=== PATIENT | female | born 1965 | race Caucasian/White ===

== ENCOUNTER → 2016-12-19 | Outpatient (CLI) | payer BC | LOC: MAMO 12-07 11:40 | DX: Z12.31 Encounter for screening mammogram for malignant neoplasm of breast (principal) | CPT/HCPCS: G0202 ==

== ENCOUNTER → 2020-10-02 | Outpatient (CLI) | payer OTHER ==
[~2020-10-02] MED LIST: ALLEGRA ALLERGY60 MG PO; LISINOPRIL-HCT1 EAC2 PO; LOPRESSOR 25 MG25 MG PO; SYNTHROID25 MCG PO
[2020-10-02 09:39] LABS: HEMOGLOBIN 12.7 gm/dl (12.3-15.3); RED BLOOD COUNT 4.52 M/UL (4.00-5.10)
[2020-10-02 10:03] LABS: BUN/CREATININE RATIO 18 (0-10)
== END ==
LOC: LAB 08:23
PROVIDERS: Nurse Practitioner Family
DX: E03.9 Hypothyroidism, unspecified (principal); R53.83 Other fatigue; I10 Essential (primary) hypertension; Z13.1 Encounter for screening for diabetes mellitus
CPT/HCPCS: 80048; 80061; 83036; 83540; 83550; 84439; 84443; 85025; 85027

== ENCOUNTER → 2021-01-25 | Outpatient (CLI) | payer OTHER ==
[2021-01-25 12:19] LABS: HEMOGLOBIN 13.1 gm/dl (12.3-15.3); RED BLOOD COUNT 4.53 M/UL (4.00-5.10); WHITE BLOOD COUNT 6.3 K/UL (4.5-11.0)
[2021-01-25 12:46] LABS: BUN/CREATININE RATIO 18 (0-10)
== END ==
LOC: LAB 10:35
PROVIDERS: Nurse Practitioner Family
DX: D64.9 Anemia, unspecified (principal); I10 Essential (primary) hypertension; E78.5 Hyperlipidemia, unspecified; E03.9 Hypothyroidism, unspecified
CPT/HCPCS: 36415; 80053; 80061; 82607; 82728; 83540; 83550; 84439; 84443; 85025

== ENCOUNTER → 2021-05-11 | Outpatient (CLI) | payer OTHER | LOC: MAMO 02-21 10:30 | DX: Z12.31 Encounter for screening mammogram for malignant neoplasm of breast (principal) | CPT/HCPCS: 77063; 77067 ==

== ENCOUNTER → 2021-05-17 | Outpatient (CLI) | payer OTHER ==
[2021-05-17 05:58] LABS: HEMOGLOBIN 13.7 gm/dl (12.3-15.3); RED BLOOD COUNT 4.51 M/UL (4.00-5.10); WHITE BLOOD COUNT 6.7 K/UL (4.5-11.0)
[2021-05-17 06:16] LABS: BUN/CREATININE RATIO 23 (0-10)
== END ==
LOC: LAB 05:25
PROVIDERS: Nurse Practitioner Family
DX: D64.9 Anemia, unspecified (principal)
CPT/HCPCS: 80053; 85025

== ENCOUNTER 2021-07-10 11:17 | Emergency (ER) | payer OTHER ==
[2021-07-10] MEDS ORDERED: FLEXERIL PO (13:37)
[2021-07-10] MEDS ORDERED: Voltaren Gel 1 % TOP (13:37)
== END 2021-07-10 13:55 | disposition home or self-care (01) ==
LOC: ER1 11:17
DX: M54.2 Cervicalgia (principal); I10 Essential (primary) hypertension; E07.9 Disorder of thyroid, unspecified
CPT/HCPCS: 72050; 99283

== ENCOUNTER → 2021-08-29 | Outpatient (CLI) | payer OTHER ==
[~2021-08-29] MED LIST changes: +FLEXERIL PO; +Voltaren Gel 1 % TOP
[2021-08-29 09:38] LABS: HEMOGLOBIN 13.2 gm/dl (12.3-15.3); RED BLOOD COUNT 4.52 M/UL (4.00-5.10); WHITE BLOOD COUNT 5.7 K/UL (4.5-11.0)
[2021-08-29 09:58] LABS: BUN/CREATININE RATIO 15 (0-10)
== END ==
LOC: LAB 09:10
PROVIDERS: Nurse Practitioner Family
DX: E78.5 Hyperlipidemia, unspecified (principal); E03.9 Hypothyroidism, unspecified; E53.8 Deficiency of other specified B group vitamins
CPT/HCPCS: 36415; 80053; 80061; 82607; 84439; 84443; 85025

== ENCOUNTER → 2022-01-19 | Outpatient (CLI) | payer OTHER | LOC: CT 08:46 | DX: R10.9 Unspecified abdominal pain (principal); Z87.442 Personal history of urinary calculi | CPT/HCPCS: 36415; 82565; 84520; Q9967 ==